=== PATIENT | male | born 1995 | race Caucasian/White ===

== ENCOUNTER 2020-11-04 16:51 | Emergency (ER) | payer OTHER ==
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
[2020-11-04 17:33] VITALS: BP 125/86; TEMP 97.7; O2SAT 99
== END 2020-11-04 17:15 | disposition home or self-care (01) ==
LOC: ER 16:51
DX: S29.012A Strain of muscle and tendon of back wall of thorax, initial encounter (principal); V49.40XA Driver injured in collision with unspecified motor vehicles in traffic accident, initial encounter; Z72.0 Tobacco use
CPT/HCPCS: 99284

== ENCOUNTER 2021-05-05 16:44 | Emergency (ER) | payer OTHER ==
--- NOTE | 2021-05-05 18:08 | RAD REPORT ---
EXAM DESCRIPTION: RAD - Hand Left 3 View - 05/05/2021 5:34 pm CLINICAL HISTORY: Pain;Deformity COMPARISON: None. FINDINGS: Longitudinal fracture is present along the radial side of the third distal phalanx tuft. A pproximately 1 millimeter of distraction noted. No other fractures seen. No air or foreign body in th e soft tissues. IMPRESSION: Left hand third distal phalanx tuft fracture as detailed.
[2021-05-05] MEDS ORDERED: LIDOCAINE 1% MPF 5 ML VIAL ONE (18:35)
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
--- NOTE | 2021-05-05 18:47 | EDPHYS ---
Physician Documentation [facility] Name: Gen Tan Age: 25 yrs Sex: Male : 1995 Arrival Date: 05/05/2021 Time: 16:45 Bed 7 Private MD: ED Physician Mir Hutchinson HPI: 05/05 18:41 This 25 yrs old Male presents to ER via Ambulatory with complaints of Crush rn Injury To Hand - conveyer belt. 18:41 The patient or guardian reports injury, a laceration, pain. The complaints affect the rn left hand. Onset: The symptoms/episode began/occurred just prior to arrival. Modifying factors: The symptoms are alleviated by holding still, the symptoms are aggravated by movement, dependent position. Associated signs and symptoms: Pertinent positives: tingling distally, Pertinent negatives: cyanosis distally, fever. Severity of symptoms: At their worst the symptoms were moderate, in the emergency department the symptoms have improved. The patient has not experienced similar symptoms in the past. The patient has not recently seen a physician. 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 Historical: - Allergies: 17:17 No Known Allergies; ll1 - PMHx: 17:17 None; ll1 - PSHx: 17:17 None; ll1 - Immunization history:: Client reports receiving the 2nd dose of the Covid vaccine, Last tetanus immunization: < 5 years ago. - Social history:: Smoking status: Reported history of juuling and/or vaping. - Family history:: not pertinent. - Hospitalizations: : No recent hospitalization is reported. ROS: 18:43 Constitutional: Negative for fever, chills, and weight loss, MS/Extremity: Positive rn injury to left hand with laceration to the base of the third digit Skin: Positive for laceration to the base of the left third finger Exam: 18:43 Constitutional: This is a well developed, well nourished patient who is awake, alert, rn and in no acute distress. Ambulatory to room Skin: Warm, dry, 3.5 cm laceration volar surface of the left third digit, no arterial bleeding, multiple foreign bodies under in wound. No bone exposed. MS/ Extremity: Pulses equal, no cyanosis. Neurovascular intact. Full, normal range of motion. Mild tenderness distal left middle finger and middle finger PIP. Vital Signs: 17:16 BP 121 / 75; Pulse 79; Resp 16; Temp 97.9; Pulse Ox 98% ; Weight 111.13 kg; Height 5 ll1 ft. 8 in. (172.72 cm); Pain 6/10; 18:45 BP 136 / 74; Pulse 87; Resp 18; Pulse Ox 98% on R/A; es2 17:16 Body Mass Index 37.25 (111.13 kg, 172.72 cm) ll1 Sweetie Coma Score: 18:32 Eye Response: spontaneous(4). Verbal Response: oriented(5). Motor Response: obeys es2 commands(6). Total: 15. Laceration: 18:43 Wound Repair of 3.5cm ( 1.4in ) subcutaneous laceration to Left third digit. Distal rn neuro/vascular/tendon intact. Anesthesia: Wound infiltrated with 3 mls of 1% lidocaine. Wound prep: Extensive cleansing by me, Wound irrigation by me, Particulate matter removal of dirt by me. Skin closed with 7 4-0 Prolene using simple sutures and sterile technique. Dressed with Steri-Strips and Kerlix. Patient tolerated well. MDM: 18:09 Patient medically screened. rn 18:43 Differential diagnosis: open fracture, closed fracture, contusion, Laceration. Data rn reviewed: vital signs, nurses notes, radiologic studies, plain films, and as a result, I will discharge patient. Test interpretation: by ED physician or midlevel provider: plain radiologic studies, X-ray left hand shows distal third digit tuft fracture.. Counseling: I had a detailed discussion with the patient and/or guardian regarding: the historical points, exam findings, and any diagnostic results supporting the discharge/admit diagnosis, radiology results, the need for outpatient follow up, to return to the emergency department if symptoms worsen or persist or if there are any questions or concerns that arise at home. Response to treatment: the patient's symptoms have markedly improved after treatment, and as a result, I will discharge patient. Special discussion: I discussed with the patient/guardian in detail that at this point there is no indication for admission to the hospital. It is understood, however, that if the symptoms persist or worsen the patient needs to return immediately for re-evaluation. ED course: Tetanus up-to-date, will DC home with antibiotics. Laceration nowhere near fractured tuft. Will DC home.. 05/05 17:19 Order name: XRAY Hand LEFT 3 View; Complete Time: 18:48 rn Administered Medications: No medications were administered Disposition Summary: 05/05/21 18:47 Discharge Ordered Location: Home rn Problem: new rn Symptoms: have improved rn Condition: Stable rn Diagnosis - Laceration without foreign body of left middle finger without damage to nail rn - Nondisplaced fracture of distal phalanx of left middle finger rn Followup: rn - With: Private Physician - When: 10 - 14 days - Reason: Staple/Suture removal Discharge Instructions: - Discharge Summary Sheet rn - Finger Fracture, Adult rn - Laceration Care, Adult rn Forms: - Medication Reconciliation Form rn - Thank You Letter rn - Antibiotic renal dialysis rn - Prescription Opioid Use rn - Work release form ss Prescriptions: - Clindamycin HCl 300 mg Oral Capsule - take 1 capsule by ORAL route every 6 hours for 10 days; 40 capsule; Refills: 0, rn Product Selection Permitted Signatures: Dispatcher [employer] Mir Mills MD MD rn Lewis, Lynsay, RN RN ll1
[2021-05-05 21:19] VITALS: TEMP 97.9; O2SAT 98
[2021-05-05 21:21] VITALS: BP 136/74
== END 2021-05-05 19:10 | disposition home or self-care (01) ==
LOC: ER 16:44
PROC: 0JQK0ZZ Repair Left Hand Subcutaneous Tissue and Fascia, Open Approach (ICD-10-PCS; principal; 2021-05-05)
DX: S61.213A Laceration without foreign body of left middle finger without damage to nail, initial encounter (principal); S62.663A Nondisplaced fracture of distal phalanx of left middle finger, initial encounter for closed fracture; W31.82XA Contact with other commercial machinery, initial encounter; Y92.63 Factory as the place of occurrence of the external cause; Y99.8 Other external cause status
CPT/HCPCS: 99284